=== PATIENT | male | born 1950 | race Two or more races ===

== ENCOUNTER → 2024-12-08 | Outpatient (CLI) | payer MEDICARE, MEDICAID, SELFPAY ==
--- NOTE | 2024-12-08 12:00 | XR_ITS ---
Examination: MRI brain without intravenous contrast. 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 Siemens high-resolution 1.5 Whitney short bore scanners utilized. Sagittal sections, T1-weighted, TR 500, TE 14, are performed. Axial sections proton-density and T2-weighted have been obtained. Inversion recovery axial images, TR 9, 260, TE 111, TI 2500. Diffusion weighted images, axial sections, TR 4800, TE 128, B value 1000 Axial sections, ADC map, TR 4800, TE 128 Findings: Enlargement of the sella turcica is not present. The optic chiasm and infundibular are not remarkable. Prepontine and interpeduncular cisterns are not enlarged. There is no localized enlargement of the medulla or quentin. Fourth ventricle and cerebellar tonsils appear normal in position. No subacute area of hemorrhage density is seen. Mass in the cerebellopontine angle region is not evident. Globes symmetrical. Orbital musculature including medial lateral rectus muscles do not exhibit abnormality. Diffusion-weighted images demonstrate no definite focus of restricted diffusion. Increased white matter signal large old infarct right middle cerebral artery distribution with mild ipsilateral ventricular enlargement Mass effect upon the ventricular system is not identified. 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
== END | disposition home or self-care (01) ==
LOC: SMRI 11:49
PROVIDERS: PCP Family Medicine; Referring Provider Psychiatry & Neurology Neurology; Visit Provider Psychiatry & Neurology Neurology
DX: G40.89 Other seizures (principal); Z86.73 Personal history of transient ischemic attack (TIA), and cerebral infarction without residual deficits
CPT/HCPCS: 70551